=== PATIENT | male | born 1995 | race Caucasian/White ===

== ENCOUNTER 2018-11-04 03:40 | Emergency (ER) | payer MEDICAID ==
[~2018-11-04] VITALS: Ht 177.8 cm; Wt 100.0 kg
[2018-11-04] MEDS ORDERED: CELEXA 20MG20 MG/TA1 PO (03:58)
[2018-11-04] MEDS ORDERED: CEFDINIR300 MG PO (04:11)
[2018-11-04 04:27] VITALS: BP 132/82
== END 2018-11-04 04:27 | disposition home or self-care (01) ==
LOC: ED 03:40
DX: J06.9 Acute upper respiratory infection, unspecified (principal); H66.92 Otitis media, unspecified, left ear; F32.9 Major depressive disorder, single episode, unspecified

== ENCOUNTER → 2021-05-28 | Outpatient (CLI) | payer OTHER ==
[~2021-05-28] MED LIST: AMOXICILLIN875 MG PO; CEFDINIR300 MG PO; CELEXA 20MG20 MG/TA1 PO
== END ==
LOC: AMSURD 14:35
DX: R00.2 Palpitations (principal)

== ENCOUNTER → 2022-02-26 | Outpatient (CLI) | payer OTHER | LOC: RAD 16:44 | DX: M50.121 Cervical disc disorder at C4-C5 level with radiculopathy (principal); M51.34 Other intervertebral disc degeneration, thoracic region ==